=== PATIENT | female | born 1955 | race Caucasian/White ===

== ENCOUNTER 2019-06-18 07:07 | Outpatient (CLI) | payer BC, OTHER ==
[~2019-06-18 07:07] MED LIST: BIOT1CAP3 PO; EPIN0.3P3 IM; FOLI0.4T2 PO; HYDR-3237 PO; LACT1CAP35 PO; OXYB5TAB7 PO
== END 2019-06-18 23:59 | disposition home or self-care (01) ==
LOC: CFH 07:07
PROVIDERS: ATTEND Family Medicine
DX: K85.90 Acute pancreatitis without necrosis or infection, unspecified (principal)
CPT/HCPCS: 76705

== ENCOUNTER → 2019-08-01 | Outpatient (CLI) | payer OTHER ==
[~2019-08-01] MED LIST changes: +OMNIPAQUE 350 MG/ML, 100ML BOTTLE ONE; +OXYB5TAB10 PO; -OXYB5TAB7 PO
== END | disposition home or self-care (01) ==
LOC: CFH 08:06
PROVIDERS: ATTEND Nurse Practitioner Family
DX: C91.90 Lymphoid leukemia, unspecified not having achieved remission (principal); K57.30 Diverticulosis of large intestine without perforation or abscess without bleeding; Z96.89 Presence of other specified functional implants; Z87.891 Personal history of nicotine dependence
CPT/HCPCS: 71260; 74177; 82565; Q9967

== ENCOUNTER 2020-01-02 17:49 | Emergency (ER) | payer OTHER ==
[~2020-01-02] VITALS: Ht 165.1 cm; Wt 69.8 kg
[~2020-01-02 17:49] MED LIST changes: -OMNIPAQUE 350 MG/ML, 100ML BOTTLE ONE
[2020-01-02] MEDS ORDERED: [UNRECOGNIZED DRUG - OTHER] (18:29)
[2020-01-02] MEDS ORDERED: LIOT5TAB11 PO (18:29)
[2020-01-02 18:42] LABS: MICROSCOPIC NOT IND
[2020-01-02 18:54] LABS: CULTURE INDICATED? NO
[2020-01-02] MEDS: ONDANSETRON ODT 4 MG PO ONE ×2 (19:00→23:11)
[2020-01-02] MEDS ORDERED: DIAZEPAM 5 MG TABLET PO ONE (19:00)
[2020-01-02] MEDS ORDERED: ONDANSETRON ODT 4 MG ONE ×2 (19:12→23:09)
[2020-01-02] MEDS ORDERED: DIAZEPAM 5 MG TABLET ONE ×2 (19:12→20:53)
--- NOTE | 2020-01-02 19:24 | NUR ---
PT REFUSED MEDS AT THIS TIME. PT STATES HER HOME MEDS SHE TOOK PRIOR TO ARRIVAL HAVE FINALLY KICKED IN. DENIES NAUSEA.
[2020-01-02 19:39] LABS: MEAN CORPUSCULAR HEMOGLOBIN 28.3 pg (27.0-34.8); MEAN CORPUSCULAR HGB CONC 33.3 g/dL (32.4-35.8); MEAN PLATELET VOLUME 11.4 fL (7.4-10.4); PLATELET COUNT 141 x10^3/uL (130-400); RED BLOOD COUNT 4.43 x10^6/uL (3.82-5.3); RED CELL DISTRIBUTION WIDTH 14.1 % (9.6-15.2)
[2020-01-02 19:40] LABS: ALANINE AMINOTRANSFERASE 20 U/L (12-78); ALBUMIN 3.8 g/dL (3.4-5.0); ANION GAP 5 mmol/L (5-15); CALCIUM 8.9 mg/dL (8.5-10.1); CHLORIDE 105 mmol/L (98-107); CREATININE 0.92 mg/dL (0.55-1.02)
[2020-01-02 19:42] LABS: ALKALINE PHOSPHATASE 47 U/L (45-117); BILIRUBIN,TOTAL 0.3 mg/dL (0.2-1.0); TOTAL PROTEIN 7.2 g/dL (6.4-8.2)
[2020-01-02 20:13] LABS: MD YES
[2020-01-02 20:16] LABS: LYMPH#(MANUAL) 7.56 x10^3/uL (1-3.4); LYMPHS% (MANUAL) 63 % (22-44); MONOS#(MANUAL) 0.84 x10^3/uL (0.3-2.7); MONOS% (MANUAL) 7 % (2-9); SEGS% (MANUAL) 30 % (42-75)
[2020-01-02 20:18] LABS: <PLATELET ESTIMATE> ADEQUATE; <RBC MORPHOLOGY> NORMAL
[2020-01-02 20:19] LABS: LARGE PLATELETS 1+
[2020-01-02 20:20] LABS: SMUDGE CELLS 1+
--- NOTE | 2020-01-02 20:35 | NUR ---
PT GOING TO US.
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
--- NOTE | 2020-01-02 21:42 | NUR ---
ALL RESULTS ARE BACK AT THIS TIME. CHART UP FOR RECHECK.
--- NOTE | 2020-01-02 21:46 | NUR ---
PT STATES VALIUM HAS TAKEN THE EDGE OF THE PAIN AND FEELS MORE RELAXED. AT BEDSIDE.
--- NOTE | 2020-01-02 22:05 | NUR ---
NEED IV FOR CT.
[2020-01-02] MEDS ORDERED: HYDROmorphone 1 MG/ML, 1ML INJ ONE (22:11)
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
[2020-01-02 22:20] VITALS: BP 145/77
--- NOTE | 2020-01-02 22:21 | NUR ---
PIV PLACED. MEDS ADMIN PER OCT. OXYGEN PLACED FOR SAFETY. VSS. PT TAKEN TO CT.
[2020-01-02] MEDS ORDERED: HYDROmorphone 1 MG/ML, 1ML INJ IV ONE (22:30)
[2020-01-02] MEDS ORDERED: OMNIPAQUE 350 MG/ML, 100ML BOTTLE ONE (22:36)
--- NOTE | 2020-01-02 22:55 | NUR ---
ALL RESULTS ARE BACK AT THIS TIME. CHART UP FOR RECHECK.
[2020-01-02] MEDS ORDERED: ONDANSETRON 2MG/ML, 2ML IVPush ONE (23:30)
== END 2020-01-02 23:35 | disposition home or self-care (01) ==
LOC: ED 23:15
DX: S39.012A Strain of muscle, fascia and tendon of lower back, initial encounter (principal); R10.31 Right lower quadrant pain; Z90.89 Acquired absence of other organs; X58.XXXA Exposure to other specified factors, initial encounter; Y93.89 Activity, other specified; Y92.89 Other specified places as the place of occurrence of the external cause; Y99.8 Other external cause status
CPT/HCPCS: 36415; 74177; 76830; 80053; 81003; 85025; 96374; 99285; J1170; Q0162; Q9967